=== PATIENT | female | born 1980 | race Hispanic/Latino ===

== ENCOUNTER → 2023-11-25 | Outpatient (REF) | payer OTHER | LOC: MRI 09:06 | PROVIDERS: ATTEND Internal Medicine | DX: S83.206A Unspecified tear of unspecified meniscus, current injury, right knee, initial encounter (principal); M22.41 Chondromalacia patellae, right knee; M25.461 Effusion, right knee; M71.21 Synovial cyst of popliteal space [Baker], right knee | CPT/HCPCS: 93005 ==